=== PATIENT | female | born 1990 ===

== ENCOUNTER 2021-10-21 07:31 | Inpatient (IN) ==
[2021-10-21] MEDS ORDERED: OXYTOCIN 30 UNITS/500 ML BAG IV PRN ×3 (08:15→18:02)
[2021-10-21 09:19] LABS: Hematocrit (blood only) 39.8 % (37-47); Mean Corpuscular Hemoglobin 30.5 pg (25-34); Mean Corpuscular Hgb Conc 35.2 g/dL (32-36); Mean Corpuscular Volume 86.7 fL (80-100); Mean Platelet Volume 10.2 fL (7.4-10.4); Platelet Count 184 K/uL (130-400); RDW Coefficient of Variation 13.4 % (11.5-14.5); RDW Standard Deviation 42.1 fL (36.4-46.3); Red Blood Count 4.59 M/uL (4.2-5.4); White Blood Count 15.97 K/uL (4.8-10.8)
[2021-10-21] MEDS: LACTATED RINGER'S 1,000 ML IV PRN ×2 (09:23→13:50)
[2021-10-21 09:39] LABS: Alanine Aminotransferase 7 U/L (7-52); Albumin Level 3.5 gm/dl (3.4-5.0); Alkaline Phosphatase 167 U/L (34-104); Anion Gap 7 (3-11); Aspartate Aminotransferase 13 U/L (13-39); BUN Creatinine Ratio 14.3 (10-20); Bilirubin,Total 0.5 mg/dl (0.2-1.0); Blood Urea Nitrogen 7 mg/dl (6-23); Calcium 8.9 mg/dl (8.5-10.1); Carbon Dioxide 25 mmol/L (21-32); Chloride 103 mmol/L (98-107); Est GFR (African American) > 150.0 ml/min; Est GFR (Non-African American) 131.7 ml/min; Globulin 3.4 gm/dl (2.5-4.0); Glucose 79 mg/dl (70-99(Fasting)); Potassium 3.6 mmol/L (3.5-5.1); Sodium 135 mmol/L (136-145); Total Protein 6.9 gm/dl (6.0-8.3)
--- NOTE | 2021-10-21 09:47 | History & Physical Report ---
Date of Service October 21, 2021 Assessment & Plan (1) Encounter for induction of labor: (2) Need for rhogam due to Rh negative mother: Plan: admit, iv, labs. start pitocin, plan arom, epidural when desires. fhts categ 1. Admission and Anticipated Discharge Date Admission Date: October 21, 2021 History of Present Illness Chief Complaint: planned induction Primary Care Provider: Angela Hernandez PA-C 31yo at 40 3/7 wks fuad presents to L&D for planned induction after gonzalez ripening balloon placed last evening. She notes gonzalez balloon did not fall out. No rom, no vb. No ctx. +FM. PNC c/b rh neg, had rhogam PNL rh neg, ri, gbs neg OBH: G1 GYNH: nl paps Allergies Allergy/AdvReac Type Severity Reaction Status Date / Time No Known Allergies Allergy Verified 10/20/21 13:17 Home Medications Medication Instructions Recorded Confirmed Type fluticasone propionate 50 1 spray INTRANASAL DAILY PRN 04/19/20 10/20/21 History mcg/actuation nasal spray,suspension (Flonase Allergy Relief) docusate sodium 100 mg capsule 100 mg PO BID 02/27/21 10/20/21 History (Colace) prenat.vits,mango,[id number] 1 tab PO DAILY 02/27/21 10/20/21 History aspirin 81 mg tablet,delayed 81 mg PO DAILY 08/05/21 10/20/21 History release loratadine 10 mg tablet (Claritin) 10 mg PO DAILY 08/05/21 10/20/21 History Patient History Medical History (Updated 10/21/21 @ 09:50 by Ju Casas MD, FACOG) History of ovarian cyst History of varicella as a child Hx of migraines common type, has not happened since college. Family History (Updated 03/07/21 @ 15:50 by Candida Gilliam MD) Father Heart disease Grandfather (Maternal) Deep vein thrombosis Prostate cancer Mother Pre-eclampsia Grandmother (Maternal) Pre-eclampsia Denies family history of Ovarian cancer Breast cancer Colorectal cancer Uterine cancer Social History (Updated 02/27/21 @ 13:36 by Gloria Fox) Smoking Status: Never smoker Hx Alcohol Use: No Hx Substance Use: No Preferred Language: [place] Islander Communication Ability: Effective Overlay Plastician Required: No Beliefs That Will Affect Care: None marital status: marital status details: Dillon (29) [phone] Current Living Situation: Spouse Current Living Situation Comment: lives with spouse, no pets current occupational status: employed 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 Other Information That Helps Us Care for You: No Feels Safe at Home: Yes Safety Concerns: Feels Safe At This Time Assistive Devices: None Review of Systems as per Subjective / HPI Physical Exam Constitutional: WD/WN, vitals as above Respiratory: normal respiratory effort, lungs clear to auscultation Cardiovascular: Rate/Rhythm: regular rate and regular rhythm Gastrointestinal (Abdomen): soft gravid nt efw 7-8# Musculoskeletal: no edema nontender calves Neurologic: grossly normal Psychiatric: A+Ox3, euthymic affect Genitourinary: Manual OB Exam: + cervical dilation 4 cm, + cervical effacement (75%) and + station 0 OB Exam Monitor Tracing: + external FHT monitor used, + external uterine monitor used (no ctx), + category I and + normal FHT variability balloon in vagina, deflated and removed. Results & Data ([facility]) Vital Signs (Past 12 Hours) Vital Signs Temp Pulse Resp BP 10/21/21 09:30 98.2 F 86 20 121/80 10/21/21 07:45 94 H 144/82 H Coding Level of Care Code None Diagnoses Encounter for induction of labor Z34.90 Need for rhogam due to Rh negative mother Z29.13
--- NOTE | 2021-10-21 13:05 | Labor Progress Brief Note ---
Date of Service October 21, 2021 Subjective feeling some ctx. Assessment & Plan (1) Encounter for induction of labor: (2) Need for rhogam due to Rh negative mother: Plan: good cx change. will see how arom helps ctx pattern. fhts categ 1. Admission and Anticipated Discharge Date Admission Date: October 21, 2021 Physical Exam Constitutional: WD/WN, vitals as above Genitourinary: Manual OB Exam: + cervical dilation 5 cm, + cervical effacement 90% and + station -1 OB Exam Monitor Tracing: + external FHT monitor used, + external uterine monitor used (q2), + category I and + normal FHT variability Results & Data ([facility]) Vital Signs (Past 12 Hours) Vital Signs Temp Pulse Resp BP Pulse Ox 10/21/21 12:54 90 96 10/21/21 12:49 77 97 10/21/21 12:44 85 96 10/21/21 12:39 80 95 10/21/21 12:34 71 96 10/21/21 12:29 73 94 10/21/21 12:24 97 H 95 10/21/21 12:19 78 94 10/21/21 12:14 67 95 10/21/21 12:09 67 95 10/21/21 12:04 77 96 10/21/21 11:59 70 97 10/21/21 11:54 82 94 10/21/21 11:51 70 120/80 10/21/21 11:49 86 94 10/21/21 11:44 71 96 10/21/21 11:39 74 96 10/21/21 11:32 97 10/21/21 11:27 77 96 10/21/21 11:22 75 96 10/21/21 11:17 77 96 10/21/21 11:12 90 95 10/21/21 11:07 74 97 10/21/21 11:02 78 96 10/21/21 10:57 75 96 10/21/21 10:52 81 96 10/21/21 10:47 83 97 10/21/21 10:44 72 118/77 10/21/21 10:42 69 99 10/21/21 09:30 98.2 F 86 20 121/80 10/21/21 07:45 94 H 144/82 H Coding Level of Care Code None Diagnoses Encounter for induction of labor Z34.90 Need for rhogam due to Rh negative mother Z29.13
[2021-10-21] MEDS ORDERED: ePHEDrine sulfate 50 MG/ML AMP ONE (13:30)
[2021-10-21] MEDS ORDERED: SODIUM CHLORIDE 0.9% INJ 10 ML VIAL ONE (13:30)
[2021-10-21] MEDS ORDERED: fentaNYL 2MCG/ML ROPIVACAINE 1.25MG/ML 100 ML BAG EPI ONE (13:30)
[2021-10-21] MEDS ORDERED: BUPIVACAINE 0.25% 30 ML VIAL ONE (13:30)
[2021-10-21] MEDS ORDERED: fentaNYL citrate 100 MCG/2 ML VIAL ONE (13:30)
--- NOTE | 2021-10-21 13:54 | Anesthesiology Consultation ---
Date of Service October 21, 2021 Assessment & Plan (1) Encounter for pre-operative examination: Chart Review Chart Review: Acceptable Risk for Labor Epidural History Height/Weight Height: 5 ft 9 in Weight: 99.337 kg Allergies Allergy/AdvReac Type Severity Reaction Status Date / Time No Known Allergies Allergy Verified 10/20/21 13:17 Medications Home Medications Medication Instructions Recorded Confirmed Last Taken docusate sodium 100 mg capsule 100 mg PO BID 02/27/21 10/21/21 10/20/21 08:00 (Colace) prenat.vits,mango,ihy-kykk-lnpqi 1 tab PO DAILY 02/27/21 10/21/21 10/20/21 08:00 aspirin 81 mg tablet,delayed 81 mg PO DAILY 08/05/21 10/21/21 10/20/21 08:00 release loratadine 10 mg tablet (Claritin) 10 mg PO DAILY 08/05/21 10/21/21 10/20/21 08:00 Active Medications Generic Name Dose Route Start Last Admin Trade Name Freq PRN Reason Stop Dose Admin Oxytocin 30 units in 500 mls @ 11 mls/hr 10/21/21 08:15 10/21/21 12:24 Pitocin IV 10/23/21 08:14 0.66 units/hr .Q24H PRN 11 mls/hr Labor Induction/Augmentation Titration Protocol 0.66 UNITS/HR Lactated Ringer's 1,000 mls @ 125 mls/hr 10/21/21 08:15 10/21/21 13:50 Lr IV 10/23/21 08:14 999 mls/hr .Q8H PRN Administration L&D Protocol Protocol Past Medical History Medical History (Updated 10/21/21 @ 13:54 by Law Bennett MD) History of ovarian cyst History of varicella as a child Hx of migraines common type, has not happened since college. Past Family History Family History Father Heart disease Grandfather (Maternal) Deep vein thrombosis Prostate cancer Mother Pre-eclampsia Grandmother (Maternal) Pre-eclampsia Denies family history of Ovarian cancer Breast cancer Colorectal cancer Uterine cancer Past Surgical History Surgical History (Updated 10/21/21 @ 13:54 by Law Bennett MD) Hx of wisdom tooth extraction Social History Smoking Status: Never smoker Hx Alcohol Use: No Hx Substance Use: No substance use type: does not use Physical Exam Vital Signs Last Vital Signs Temp 36.8 C 10/21/21 09:30 Pulse 90 10/21/21 12:54 Resp 20 10/21/21 09:30 BP 120/80 10/21/21 11:51 Pulse Ox 96 10/21/21 12:54 Testing Laboratory Results 10/21/21 08:50 10/21/21 08:50
[2021-10-21] MEDS ORDERED: ePHEDrine sulfate 50 MG/ML AMP IV PRN (14:18)
[2021-10-21] MEDS ORDERED: NALOXONE HCL 0.4 MG/1 ML VIAL/CARP IV PRN (14:18)
[2021-10-21] MEDS ORDERED: NALOXONE HCL 1 MG in SODIUM CHLORIDE 0.9% 1000ML 1,000 ML IV PRN (14:18)
[2021-10-21] MEDS ORDERED: ONDANSETRON INJ 2 MG/ML 2 ML VIAL IV PRN (14:18)
[2021-10-21] MEDS ORDERED: fentaNYL 2MCG/ML ROPIVACAINE 1.25MG/ML 100 ML BAG EPI PRN (14:18)
--- NOTE | 2021-10-21 15:07 | Labor Progress Brief Note ---
Date of Service October 21, 2021 Subjective pt comfortable with epidural. Assessment & Plan (1) Encounter for induction of labor: (2) Need for rhogam due to Rh negative mother: Plan: good cx change. fhts categ 1. c/w pitocin. fse applied to better monitor fhts. ? arrhythmia, not obvious to me, explained to pt would be eval by peds after . Admission and Anticipated Discharge Date Admission Date: October 21, 2021 Physical Exam Constitutional: WD/WN, vitals as above Genitourinary: Manual OB Exam: + cervical dilation 5 cm, + cervical effacement 100% and + station -1 OB Exam Monitor Tracing: + external FHT monitor used, + scalp electrode used (applied), + external uterine monitor used (q2), + category I and + normal FHT variability Results & Data ([facility]) Vital Signs (Past 12 Hours) Vital Signs Temp Pulse Resp BP Pulse Ox 10/21/21 14:59 65 98 10/21/21 14:54 62 117/65 98 10/21/21 14:49 66 98 10/21/21 14:44 67 99 10/21/21 14:39 73 99 10/21/21 14:37 77 117/75 10/21/21 14:34 64 98 10/21/21 14:32 60 109/71 10/21/21 14:29 73 99 10/21/21 14:25 80 117/78 10/21/21 14:24 69 99 10/21/21 14:23 71 112/70 10/21/21 14:21 68 114/68 10/21/21 14:19 69 112/62 99 10/21/21 14:17 64 117/72 10/21/21 14:15 65 115/68 10/21/21 14:14 66 100 10/21/21 14:13 66 121/78 10/21/21 14:11 65 121/75 10/21/21 14:09 71 100 10/21/21 14:04 74 100 10/21/21 13:59 74 100 10/21/21 13:54 83 99 10/21/21 12:54 90 96 10/21/21 12:49 77 97 10/21/21 12:44 85 96 10/21/21 12:39 80 95 10/21/21 12:34 71 96 10/21/21 12:29 73 94 10/21/21 12:24 97 H 95 10/21/21 12:19 78 94 10/21/21 12:14 67 95 10/21/21 12:09 67 95 10/21/21 12:04 77 96 10/21/21 11:59 70 97 10/21/21 11:54 82 94 10/21/21 11:51 70 120/80 10/21/21 11:49 86 94 10/21/21 11:44 71 96 10/21/21 11:39 74 96 10/21/21 11:32 97 10/21/21 11:27 77 96 10/21/21 11:22 75 96 10/21/21 11:17 77 96 10/21/21 11:12 90 95 10/21/21 11:07 74 97 10/21/21 11:02 78 96 10/21/21 10:57 75 96 10/21/21 10:52 81 96 10/21/21 10:47 83 97 10/21/21 10:44 72 118/77 10/21/21 10:42 69 99 10/21/21 09:30 98.2 F 86 20 121/80 10/21/21 07:45 94 H 144/82 H Coding Level of Care Code None Diagnoses Encounter for induction of labor Z34.90 Need for rhogam due to Rh negative mother Z29.13
--- NOTE | 2021-10-21 17:06 | Labor Progress Brief Note ---
Date of Service October 21, 2021 Subjective comfortable with epidural, occas right sided pain. Assessment & Plan (1) Encounter for induction of labor: (2) Need for rhogam due to Rh negative mother: Plan: ready for 2nd stage. FHTs categ 1. c/w pit. Admission and Anticipated Discharge Date Admission Date: October 21, 2021 Physical Exam Constitutional: WD/WN, vitals as above Genitourinary: Manual OB Exam: + cervical dilation 10 cm, + cervical effacement 100% and + station + 2 OB Exam Monitor Tracing: + scalp electrode used, + external uterine monitor used (q3), + category I and + normal FHT variability Results & Data ([facility]) Vital Signs (Past 12 Hours) Vital Signs Temp Pulse Resp BP Pulse Ox 10/21/21 16:59 82 100 10/21/21 16:54 66 100 10/21/21 16:53 67 125/71 10/21/21 16:49 65 99 10/21/21 16:44 84 99 10/21/21 16:39 72 99 10/21/21 16:38 71 127/76 10/21/21 16:34 85 98 10/21/21 16:29 71 100 10/21/21 16:24 69 99 10/21/21 16:23 76 127/81 10/21/21 16:19 66 98 10/21/21 16:14 77 99 10/21/21 16:09 67 100 10/21/21 16:08 67 119/74 10/21/21 16:04 64 99 10/21/21 15:59 83 99 10/21/21 15:54 67 100 10/21/21 15:53 70 118/71 10/21/21 15:49 63 99 10/21/21 15:44 75 99 10/21/21 15:39 70 116/68 98 10/21/21 15:34 69 98 10/21/21 15:29 65 98 10/21/21 15:24 66 98 10/21/21 15:22 68 111/59 L 10/21/21 15:19 68 99 10/21/21 15:14 65 98 10/21/21 15:09 65 98 10/21/21 15:08 57 L 114/61 10/21/21 15:04 67 99 10/21/21 14:59 65 98 05 14:56 98.2 F 20 10/21/21 14:54 62 117/65 98 05 14:49 66 98 05 14:44 67 99 10/21/21 14:39 73 99 05 14:37 77 117/75 05 14:34 64 98 05 14:32 60 109/71 05 14:29 73 99 05 14:25 80 117/78 05 14:24 69 99 05 14:23 71 112/70 05 14:21 68 114/68 05 14:19 69 112/62 99 05 14:17 64 117/72 10/21/21 14:15 65 115/68 10/21/21 14:14 66 100 10/21/21 14:13 66 121/78 05 14:11 65 121/75 05 14:09 71 100 05 14:04 74 100 05 13:59 74 100 05 13:54 83 99 05 13:01 97.9 F 20 10/21/21 12:54 90 96 05 12:49 77 97 10/21/21 12:44 85 96 05 12:39 80 95 10/21/21 12:34 71 96 05 12:29 73 94 05 12:24 97 H 95 05 12:19 78 94 05 12:14 67 95 05 12:09 67 95 05 12:04 77 96 05 11:59 70 97 05 11:54 82 94 05 11:51 70 120/80 05 11:49 86 94 05 11:44 71 96 05 11:39 74 96 05 11:32 97 05 11:27 77 96 05 11:22 75 96 05 11:17 77 96 05 11:12 90 95 05/24/22 11:07 74 97 05/22 11:02 78 96 10/21/21 10:57 75 96 10/21/21 10:52 81 96 10/21/21 10:47 83 97 10/21/21 10:44 72 118/77 10/21/21 10:42 69 99 10/21/21 09:30 98.2 F 86 20 121/80 10/21/21 07:45 94 H 144/82 H Coding Level of Care Code None Diagnoses Encounter for induction of labor Z34.90 Need for rhogam due to Rh negative mother Z29.13
--- NOTE | 2021-10-21 18:01 | Delivery Summary ---
Vaginal Delivery Summary Date of Service October 21, 2021 Vaginal Delivery Summary and 2nd Degree LAC The patient dilated to complete and pushed to deliver a viable male infant Apgars 8 and 9 via over 2nd degree perineal laceration. Mouth and nose bulb suctioned at perineum. Loose nuchal x 2 reduced. Shoulders and body delivered with ease. Infant was vigorous and crying at . Cord clamped at 30 seconds of life and to maternal abdomen where the cord was then doubly clamped and cut. Placenta delivered spontaneously and intact, three-vessel cord. Hemostasis achieved with dilute pitocin and uterine massage. Cervix and sulci intact. Laceration repaired in routine fashion with 3-0 vicryl. EBL 400 cc. Mother and baby stable recovery. [facility] Vaginal Delivery Charge Delivery Type Details: and 2nd Degree LAC
[2021-10-21] MEDS ORDERED: bisacodyL 10 MG SUPP PR PRN (18:02)
[2021-10-21] MEDS ORDERED: HYDROCORTISONE ACETATE 25 MG SUPP PR PRN (18:02)
[2021-10-21] MEDS ORDERED: ACETAMINOPHEN 325 MG TAB PO PRN (18:02)
[2021-10-21] MEDS ORDERED: DIPHTHERIA/TETANUS/PERTUSSIS 0.5 ML SYR/VIAL IM ONE (18:02)
[2021-10-21] MEDS ORDERED: BENZOCAINE 20% AER SPR 82.5 GM CAN EXT PRN (18:02)
[2021-10-21] MEDS ORDERED: OXYTOCIN 20 UNITS in LACTATED RINGER'S 1,000 ML IV SCH (18:02)
[2021-10-21] MEDS ORDERED: oxyCODONE/ACETAMINOPHEN 5mg/325mg TAB PO PRN (18:02)
--- NOTE | 2021-10-21 18:28 | Anesthesia Procedure Note ---
Date of Service October 21, 2021 Anesthesia Post Epidural Note Vital Signs Vital Signs: Temp Pulse Resp BP Pulse Ox 36.8 C 93 H 20 119/50 L 88 L 10/21/21 14:56 10/21/21 18:13 10/21/21 14:56 10/21/21 18:13 10/21/21 17:44 Notes Mental Status: alert / awake / arousable and participated in evaluation Nausea / Vomiting: adequately controlled Pain: adequately controlled Airway Patency, RR, SpO2: stable & adequate BP & HR: stable & adequate Hydration State: stable & adequate Neuraxial Anesthesia: was administered and sensory block is resolving Anesthetic Complications: no major complications apparent Epidural: Removed without complications and With tip intact
[2021-10-21] MEDS: DOCUSATE SODIUM 100 MG CAP PO SCH (20:17)
[2021-10-21] MEDS: IBUPROFEN 600 MG TAB PO PRN (22:35)
[2021-10-22] MEDS: IBUPROFEN 600 MG TAB PO PRN ×5 (03:38→20:47)
--- NOTE | 2021-10-22 06:08 | Obstetrical Progress Note ---
Date of Service <Dorcas Medina MD - Last Filed: 10/22/21 07:07> October 22, 2021 Assessment & Plan <Dorcas Medina MD - Last Filed: 10/22/21 07:07> (1) Vaginal delivery: 31 yo now PPD1 from [facility] at 40wk3d -Continue routine care -Vitals reviewed- HDS, afebrile -Blood type B-, GBS-, Rubella immune. Will need Rhogam prior to discharge. -Encourage ambulation -Encourage -Pain control with ibuprofen, acetaminophen PRN -F/u in 6 weeks with OB <Ju Casas MD, FACOG - Last Filed: 10/22/21 07:11> (1) Vaginal delivery: Subjective <Dorcas Medina MD - Last Filed: 10/22/21 07:07> Ambulation: ambulating normally Voiding: no voiding problems Passing Gas:: Yes Diet Tolerance:: regular diet Lochia:: Small Feeding Type:: breast feeding Current Pain Level(1-10): 3 Pt doing well overall, no acute complaints or distress. Pain well controlled with medication. Review of Systems Denies fever/chills. Denies dyspnea, cough. Denies chest pain. Denies breast pain or discharge. Denies dysuria. Denies headache. Denies back pain. Physical Exam <Dorcas Medina MD - Last Filed: 10/22/21 07:07> General: Alert, oriented, no acute distress Cardiac: Regular rate and rhythm, normal S1, S2. No murmurs appreciated. Respiratory: Clear to auscultation b/l with good air flow entry, symmetric chest rise and fall. No wheezes or crackles. No increased work of breathing or accessory muscle use Abdomen: Soft, nontender, nondistended. Fundus firm and palpable at 1 cm below umbilicus. No guarding or rebound. Skin: No rashes or lesions Extremities: Warm, dry, well-perfused with capillary refill <2s b/l. No lower extremity edema, erythema, swelling or calf tenderness b/l. Results & Data ([facility]) <Dorcas Medina MD - Last Filed: 10/22/21 07:07> Vital Signs (Past 12 Hours) Vital Signs Temp Pulse Pulse Resp BP BP Pulse Ox 10/22/21 03:42 36.6 C 84 18 114/74 98 10/21/21 20:25 36.7 C 92 H 18 118/76 100 10/21/21 20:12 98 H 114/75 10/21/21 20:00 18 10/21/21 19:57 100 H 113/77 10/21/21 19:42 91 H 109/67 10/21/21 19:30 36.8 C 18 10/21/21 19:27 96 H 115/66 10/21/21 19:12 95 H 116/64 10/21/21 18:57 100 H 121/69 10/21/21 18:42 94 H 123/68 10/21/21 18:27 88 120/64 10/21/21 18:13 93 H 119/50 L <Ju Casas MD, FACOG - Last Filed: 10/22/21 07:11> Co-Signing Physician Notes Resident Physician Supervision Note: I was present with Dr. Medina during the history and exam. I discussed the case with the resident and agree with the findings and plan as documented in the note. Any exceptions or clarifications are listed here: doing well routine care ff 1 down, nt, nt calves. rh neg and baby +, will need rhogam. Documented By: Ju Casas MD, FACOG Resident Activity Tracking <Dorcas Medina MD - Last Filed: 10/22/21 07:07> Resident Involvement: Resident Care Provided Care Provided: OB Delivery
[2021-10-22] MEDS: DOCUSATE SODIUM 100 MG CAP PO SCH ×2 (09:11→20:48)
[2021-10-22] MEDS: PRENATAL VITAMIN 1 TAB PO SCH (09:11)
[2021-10-22] MEDS: LORATADINE 10 MG TAB PO SCH (09:12)
[2021-10-23] MEDS: IBUPROFEN 600 MG TAB PO PRN ×2 (05:18→10:38)
--- NOTE | 2021-10-23 05:33 | Obstetrical Progress Note ---
Date of Service <Dorcas Medina MD - Last Filed: 10/23/21 07:24> October 23, 2021 Assessment & Plan <Dorcas Medina MD - Last Filed: 10/23/21 07:24> (1) Vaginal delivery: 31 yo now PPD2 from at 40wk3d -Discharge to home today, instructions reviewed with patient -Vitals reviewed- HDS, afebrile -Rh negative, received Rhogam -F/u in 6 weeks with OB <Venessa Garcia MD, FACOG - Last Filed: 10/23/21 07:32> (1) Vaginal delivery: Subjective <Dorcas Medina MD - Last Filed: 10/23/21 07:24> Ambulation: ambulating normally Voiding: no voiding problems Passing Gas:: Yes Diet Tolerance:: regular diet Lochia:: Small Feeding Type:: breast feeding Current Pain Level(1-10): 0 Pt doing well overall, no acute complaints or distress. Mild nipple soreness with , pain well controlled with medication. Review of Systems Denies fever/chills. Denies dyspnea, cough. Denies chest pain. Denies breast pain or discharge. Denies dysuria. Denies headache. Denies back pain. Physical Exam <Dorcas Medina MD - Last Filed: 10/23/21 07:24> General: Alert, oriented, no acute distress Cardiac: Regular rate and rhythm, normal S1, S2. No murmurs appreciated. Respiratory: Clear to auscultation b/l with good air flow entry, symmetric chest rise and fall. No wheezes or crackles. No increased work of breathing or accessory muscle use Abdomen: Soft, nontender, nondistended. Fundus firm and palpable at 2 cm below umbilicus. No guarding or rebound. Skin: No rashes or lesions Extremities: Warm, dry, well-perfused with capillary refill <2s b/l. No lower extremity edema, erythema, swelling or calf tenderness b/l. Results & Data ([facility]) <Dorcas Medina MD - Last Filed: 10/23/21 07:24> Vital Signs (Past 12 Hours) Vital Signs Temp Pulse Resp BP Pulse Ox 10/23/21 04:20 36.7 C 72 18 127/78 98 10/22/21 20:00 36.7 C 86 18 <Venessa Garcia MD, FACOG - Last Filed: 10/23/21 07:32> Co-Signing Physician Notes Resident Physician Supervision Note: I interviewed and examined the patient. Discussed with Dr. Medina and agree with findings and plan as documented in the note. Any exceptions or clarifications are listed here: [None] Documented By: Venessa Garcia MD, FACOG Resident Activity Tracking <Dorcas Medina MD - Last Filed: 10/23/21 07:24> Resident Involvement: Resident Care Provided Care Provided: OB Delivery
[2021-10-23] MEDS: DOCUSATE SODIUM 100 MG CAP PO SCH (07:57)
[2021-10-23] MEDS: PRENATAL VITAMIN 1 TAB PO SCH (07:57)
[2021-10-23] MEDS: LORATADINE 10 MG TAB PO SCH (07:58)
== END 2021-10-23 13:07 | disposition home or self-care (01) | DRG 807 ==
LOC: 4S1 07:31 → 4E2 20:30

== ENCOUNTER 2024-10-16 17:32 | Inpatient (IN) ==
[2024-10-16] MEDS ORDERED: CALCIUM CARBONATE 500 MG CHEWABLE TAB PO PRN (18:11)
[2024-10-16] MEDS ORDERED: OXYTOCIN 30 UNITS/NSS 30 UNITS/500 ML BAG IV PRN (18:11)
[2024-10-16] MEDS ORDERED: ACETAMINOPHEN 325 MG TAB PO PRN (18:11)
[2024-10-16] MEDS ORDERED: LIDOCAINE 1% LOCAL 20 ML VIAL INFIL PRN (18:11)
[2024-10-16 18:41] LABS: Hematocrit (blood only) 40.2 % (37.0-47.0); Hemoglobin 14.2 g/dl (12.0-16.0); Mean Corpuscular Hemoglobin 30.1 pg (25.0-34.0); Mean Corpuscular Hgb Conc 35.3 g/dL (32.0-36.0); Mean Corpuscular Volume 85.4 fL (80.0-100.0); Mean Platelet Volume 10.1 fL (9.4-12.4); Platelet Count 160 K/uL (130-400); RDW Coefficient of Variation 13.6 % (11.5-14.5); RDW Standard Deviation 41.9 fL (36.4-46.3); Red Blood Count 4.71 M/uL (4.20-5.40); White Blood Count 9.52 K/ul (4.8-10.8)
[2024-10-16] MEDS: OXYTOCIN 30 UNITS/NSS 30 UNITS/500 ML BAG IV PRN (19:22)
[2024-10-16] MEDS: LACTATED RINGER'S 1,000 ML IV PRN (19:22)
--- NOTE | 2024-10-16 19:35 | History & Physical Report ---
Date of Service October 16, 2024 Assessment & Plan (1) Post term over 40 weeks: Plan: IUP at 40 3/7 weeks for IOL will start pitocin induction per L&D protocol epidural when requested anticipate vaginal Admission and Anticipated Discharge Date Admission Date: October 16, 2024 History of Present Illness Primary Care Provider: Angela Hernandez PA-C Patient is a 34 yo female EDC 10/13/24 who presents at 40 3/7 weeks for induction because of post term . course otherwise has been uneventful. GBS-neg/ B-neg Allergies Allergy/AdvReac Type Severity Reaction Status Date / Time amoxicillin Allergy Mild Rash Verified 10/13/24 14:52 Home Medications Medication Instructions Recorded Confirmed Type prenat.vits,mango,gpq-flfb-rxnav 1 tab PO DAILY 02/27/21 10/13/24 History fluticasone propionate [Flonase intranasal 03/11/22 10/13/24 History Allergy Relief] cetirizine [Zyrtec] PO 01/07/23 10/13/24 History docusate sodium [Colace] PO PRN 10/06/24 10/13/24 History Patient History Medical History (Updated 10/16/24 @ 19:37 by Venessa Garcia MD, FACOG) Ovarian cyst, right Vaginal delivery History of varicella as a child History of ovarian cyst Hx of migraines common type, has not happened since college. Surgical History S/P wisdom tooth extraction Family History Father Heart disease Grandfather (Maternal) Deep vein thrombosis Prostate cancer Mother Pre-eclampsia Grandmother (Maternal) Pre-eclampsia Uncle Colorectal cancer Denies family history of Ovarian cancer Breast cancer Uterine cancer Social History (Updated 10/16/24 @ 18:29 by Saumya Lee RN) Smoking Status: Never smoker Do You Dip or Chew Tobacco: No; Hx Alcohol Use: No Hx Substance Use: No Preferred Language: Kinyarwanda Communication Ability: Effective Merchandise Clerk Required: No Beliefs That Will Affect Care: None marital status: marital status details: Arthur (32) [phone] Current Living Situation: Spouse and Family Current Living Situation Comment: lives with spouse, child, no pets current occupational status: employed 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 [employer] Feels Safe at Home: Yes Safety Concerns: Feels Safe At This Time Assistive Devices: None Review of Systems All systems reviewed & are unremarkable except as noted in HPI & below Physical Exam Constitutional: WD/WN, vitals as above Psychiatric: A+Ox3, euthymic affect Genitourinary: OB Exam Abdomen: + vertex and + estimated weight (7-8 pounds) Manual OB Exam: + cervical dilation 3 cm, + cervical effacement 80% and + station -1 (posterior) OB Exam Monitor Tracing: + external FHT monitor used, + external uterine monitor used, + category I and + normal FHT variability Results & Data Vital Signs (Past 12 Hours) Vital Signs Temp Pulse Resp BP 10/16/24 19:04 88 10/16/24 19:04 122/78 10/16/24 18:34 97.9 F 105 H 22 136/86 10/16/24 18:15 105 H 136/86 Coding Level of Care Code 10486 INT INP/OBS CARE 140MIN Diagnoses Post term over 40 weeks O48.0
[2024-10-16] MEDS ORDERED: NALOXONE HCL 0.4 MG/1 ML VIAL/CARP IV PRN (21:58)
[2024-10-16] MEDS ORDERED: fentANYL 2 MCG/ML BUPIVacaine 0.125%-NSS 100ML BAG EPI PRN (21:58)
[2024-10-16] MEDS ORDERED: ROPIVACAINE 0.5% PF 5 MG/ML 20 ML VIAL EPI PRN (21:58)
[2024-10-16] MEDS ORDERED: BUPIVACAINE 0.25% PF 30 ML VIAL EPI PRN (21:58)
[2024-10-16] MEDS ORDERED: NALOXONE HCL 1 MG in SODIUM CHLORIDE 0.9% 1,000 ML IV PRN (21:58)
[2024-10-16] MEDS ORDERED: NALBUPHINE HCL INJ 10 MG/ML AMP IV PRN (21:58)
[2024-10-16] MEDS ORDERED: fentaNYL citrate PF 100 MCG/2 ML VIAL EPI PRN (21:58)
[2024-10-16] MEDS ORDERED: ePHEDrine sulfate 50 MG/ML AMP IV PRN (21:58)
[2024-10-16] MEDS ORDERED: diphenhydrAMINE 50 MG/ML VIAL IV PRN (21:58)
[2024-10-16] MEDS ORDERED: SODIUM CHLORIDE 0.9% PF INJ 10 ML VIAL EPI PRN (21:58)
--- NOTE | 2024-10-16 22:01 | Anesthesiology Consultation ---
Date of Service October 16, 2024 Assessment & Plan Chart Review Chart Review: Patient NOT seen in Pre Admission Testing and Acceptable Risk for Labor Epidural Consults Requested none ASA ASA2 Proposed Anesthesia Anesthesia Type: Labor Epidural Risk / Benefits Reviewed With: PT / POA / Parent / Guardian, Accepts Plan and Informed Consent Obtained History Height/Weight Height: 5 ft 9 in Weight: 107.594 kg Allergies Allergy/AdvReac Type Severity Reaction Status Date / Time amoxicillin Allergy Mild Rash Verified 10/13/24 14:52 Medications Home Medications Medication Instructions Recorded Confirmed Last Taken prenat.vits,mango,wvy-dymk-tjyfv 1 tab PO DAILY 02/27/21 10/16/24 10/20/21 08:00 Zyrtec 1 cap PO 10/16/24 Unknown fluticasone propionate 50 See Rx Instructions .Route .COMPLEX 10/16/24 10/16/24 Unknown mcg/actuation nasal spray,suspension Active Medications Generic Name Dose Route Start Last Admin Trade Name Freq PRN Reason Stop Dose Admin Lactated Ringer's 1,000 mls @ 125 mls/hr 10/16/24 18:11 10/16/24 21:50 Lr IV 10/18/24 18:10 999 mls/hr .Q8H PRN Titration L&D Protocol Protocol Oxytocin 30 units in 500 mls @ 10 mls/hr 10/16/24 18:13 10/16/24 21:45 Pitocin 30 Units/Nss IV 10/18/24 18:12 0.6 units/hr .Q24H PRN 10 mls/hr Labor Induction/Augmentation Titration Protocol 0.6 UNITS/HR NPO Date Last Intake of Fluids: 10/16/24 Time Last Intake of Fluids: 21:30 Date Last Intake of Solids: 10/16/24 Time Last Intake of Solids: 16:30 Past Medical History Medical History Ovarian cyst, right Vaginal delivery History of varicella as a child History of ovarian cyst Hx of migraines common type, has not happened since college. Exercise / Class Metabolic Activity 1 > 8 Run/Swim/Ski/Tennis Past Family History Family History Father Heart disease Grandfather (Maternal) Deep vein thrombosis Prostate cancer Mother Pre-eclampsia Grandmother (Maternal) Pre-eclampsia Uncle Colorectal cancer Maternal uncle diagnosed at age 58. Denies family history of Ovarian cancer Breast cancer Uterine cancer Past Surgical History Surgical History S/P wisdom tooth extraction Past Anesthesia History No Hx of Anesthesia Complications and No Family Hx of Anesthesia Complications History of PONV No Hx of PONV and No Hx of Motion Sickness Social History Smoking Status: Never smoker Do You Dip or Chew Tobacco: No Hx Alcohol Use: No Hx Substance Use: No substance use type: does not use Review of Systems ROS Unobtainable: All systems reviewed & are unremarkable except as noted in HPI & below Physical Exam Vital Signs Last Vital Signs Temp 36.6 C 10/16/24 18:34 Pulse 93 H 10/16/24 21:28 Resp 22 10/16/24 18:34 BP 125/80 10/16/24 21:28 ENMT Mouth: no TMJ abnormality Thyromental Distance: > or= 3.5 Finger Breadths Mallampati Class: II Neck normal visual inspection and trachea midline; neck extension not limited Respiratory normal respiratory effort Auscultation: lungs clear to auscultation bilaterally Cardiovascular Rate/Rhythm: regular rate and regular rhythm Heart Sounds: no murmur Musculoskeletal Spine: normal cervical ROM Extremities: full ROM of extremities Neurologic moves all extremities Psychiatric Orientation: alert and oriented x 3 Testing Laboratory Results 10/16/24 18:25
[2024-10-16] MEDS: LIDOCAINE 2% MPF LOCAL 5 ML VIAL EPI PRN (22:26)
[2024-10-16] MEDS: ePHEDrine sulfate 50 MG/ML AMP ONE (22:27)
[2024-10-16] MEDS: fentaNYL citrate PF 100 MCG/2 ML VIAL ONE (22:27)
[2024-10-16] MEDS: SODIUM CHLORIDE 0.9% PF INJ 10 ML VIAL EPI STA (22:27)
[2024-10-16] MEDS: BUPIVACAINE 0.25% PF 30 ML VIAL ONE (22:27)
[2024-10-16] MEDS: fentaNYL citrate PF 100 MCG/2 ML VIAL EPI STA (22:27)
[2024-10-16] MEDS: fentANYL 2 MCG/ML BUPIVacaine 0.125%-NSS 100ML BAG ONE (22:27)
[2024-10-16] MEDS: BUPIVACAINE 0.25% PF 30 ML VIAL EPI STA (22:28)
[2024-10-16] MEDS: SODIUM CHLORIDE 0.9% PF INJ 10 ML VIAL ONE (22:28)
[2024-10-16] MEDS: LIDOCAINE 2%/EPINEPHRINE 1:200,000 20 ML PF ONE (22:28)
[2024-10-16] MEDS: LIDOCAINE 2%/EPINEPHRINE 1:200,000 20 ML PF EPI STA (22:29)
[2024-10-17] MEDS ORDERED: OXYTOCIN 30 UNITS/NSS 30 UNITS/500 ML BAG IV PRN (03:09)
[2024-10-17] MEDS ORDERED: oxyCODONE/ACETAMINOPHEN 5mg/325mg TAB PO PRN (03:09)
[2024-10-17] MEDS ORDERED: BENZOCAINE 20% SPRY 85 APPLN/85 GM CAN EXT PRN (03:09)
[2024-10-17] MEDS ORDERED: HYDROCORTISONE ACETATE 25 MG SUPP PR PRN (03:09)
[2024-10-17] MEDS ORDERED: ACETAMINOPHEN 325 MG TAB PO PRN (03:09)
--- NOTE | 2024-10-17 03:38 | Delivery Summary ---
Vaginal Delivery Summary Date of Service October 17, 2024 Vaginal Delivery Summary [facility] Patient is a 34-year-old 2 para 1-0-0-1 female who had presented for induction of labor because of postterm . Pitocin by induction protocol was begun. She received effective epidural analgesia. Membranes were ruptured for clear fluid. She progressed to full dilation with the urge to push. She pushed effectively over intact perineum for delivery of a viable female infant. After the head was delivered the right hand presented followed by the arm. Rest of the delivered easily. The infant was placed on the mother's abdomen for further tension and drying. She was vigorous crying and moving all 4 limbs. Cord was clamped and cut after approximately 1 minute. After cord blood was obtained, the placenta was expressed intact with a three-vessel cord. bleeding was controlled dilute Pitocin and fundal massage. Mother and were doing well after delivery. QBL was 101 mL [facility] Vaginal Delivery Charge Delivery Type Details: [facility]
[2024-10-17] MEDS: DIPHTHER/TETAN/PERTUS Vaccine (Tdap, Adol/Adult) 0.5mL IM ONE (04:10)
--- NOTE | 2024-10-17 05:05 | Anesthesia Procedure Note ---
Date of Service October 17, 2024 Anesthesia Post Epidural Note Vital Signs Vital Signs: Temp Pulse Resp BP Pulse Ox 36.8 C 93 H 18 118/56 L 99 10/17/24 01:01 10/17/24 04:33 10/17/24 04:35 10/17/24 04:33 10/17/24 02:25 Notes Mental Status: alert / awake / arousable and participated in evaluation Nausea / Vomiting: adequately controlled Pain: adequately controlled Airway Patency, RR, SpO2: stable & adequate BP & HR: stable & adequate Hydration State: stable & adequate Neuraxial Anesthesia: was administered and sensory block is resolving Anesthetic Complications: no major complications apparent Epidural: Removed without complications and With tip intact
[2024-10-17] MEDS: PRENATAL VITAMIN 1 TAB PO SCH (08:22)
[2024-10-17] MEDS: DOCUSATE SODIUM 100 MG CAP PO SCH (08:22)
[2024-10-17] MEDS: IBUPROFEN 600 MG TAB PO PRN (08:22)
--- NOTE | 2024-10-17 08:25 | Obstetrical Progress Note ---
Date of Service October 17, 2024 Assessment & Plan (1) Encounter for care and examination after delivery: satisfactory course continue current care plan Subjective Ambulation: ambulating normally Voiding: no voiding problems Passing Gas:: Yes Diet Tolerance:: regular diet Lochia:: Moderate Feeding Type:: breast feeding doing well this morning minimal cramping with Physical Exam Constitutional WD/WN, vitals as above Psychiatric A+Ox3, euthymic affect Genitourinary OB Exam Abdomen: + fundal height Fundus: + firm and + relation to umbilicus (at U) Results & Data Vital Signs (Past 12 Hours) Vital Signs Temp Pulse Pulse Resp BP BP Pulse Ox 10/17/24 07:39 98.2 F 86 18 115/74 97 10/17/24 05:10 97.7 F 88 18 129/88 97 10/17/24 04:35 18 10/17/24 04:33 93 H 118/56 L 10/17/24 04:18 96 H 115/63 10/17/24 04:03 92 H 121/65 10/17/24 03:48 86 122/68 10/17/24 03:33 78 132/68 10/17/24 03:20 18 10/17/24 03:18 88 129/66 10/17/24 03:09 82 137/69 10/17/24 03:05 18 10/17/24 02:52 87 136/70 10/17/24 02:50 18 10/17/24 02:35 18 10/17/24 02:35 94 H 139/74 10/17/24 02:33 164 H 156/105 H 10/17/24 02:25 100 H 99 10/17/24 02:20 101 H 97 10/17/24 02:15 131 H 99 10/17/24 02:12 106 H 92 10/17/24 02:10 92 H 98 10/17/24 02:07 115 H 92 10/17/24 02:05 110 H 99 10/17/24 02:04 90 139/84 10/17/24 02:00 96 H 98 10/17/24 01:55 96 H 97 10/17/24 01:50 101 H 99 10/17/24 01:45 105 H 98 10/17/24 01:40 105 H 98 10/17/24 01:35 103 H 98 10/17/24 01:33 93 H 131/78 10/17/24 01:30 100 H 99 10/17/24 01:25 100 H 99 10/17/24 01:20 96 H 99 10/17/24 01:15 89 100 10/17/24 01:10 92 H 100 10/17/24 01:05 77 97 10/17/24 01:04 78 106/59 L 10/17/24 01:01 18 10/17/24 01:01 98.2 F 18 10/17/24 01:00 88 98 10/17/24 00:55 76 98 10/17/24 00:50 75 97 10/17/24 00:45 78 98 10/17/24 00:40 71 98 10/17/24 00:35 81 98 10/17/24 00:34 78 97/56 L 10/17/24 00:30 80 97 10/17/24 00:25 80 97 10/17/24 00:20 95 H 98 10/17/24 00:15 76 97 10/17/24 00:10 83 98 10/17/24 00:05 85 96 10/17/24 00:04 78 111/70 10/17/24 00:00 81 97 10/16/24 23:55 99 10/16/24 23:55 78 10/16/24 23:50 96 10/16/24 23:50 92 H 10/16/24 23:45 100 10/16/24 23:45 80 10/16/24 23:40 97 10/16/24 23:40 76 10/16/24 23:35 97 10/16/24 23:35 67 10/16/24 23:34 67 10/16/24 23:34 102/59 L 10/16/24 23:30 95 10/16/24 23:30 67 10/16/24 23:29 94 10/16/24 23:29 75 10/16/24 23:25 95 10/16/24 23:25 81 10/16/24 23:20 95 10/16/24 23:20 71 10/16/24 23:20 94 10/16/24 23:20 85 10/16/24 23:15 95 10/16/24 23:15 78 10/16/24 23:10 96 10/16/24 23:10 85 10/16/24 23:05 18 10/16/24 23:05 97.5 F L 18 10/16/24 23:05 97 10/16/24 23:05 85 10/16/24 23:04 71 10/16/24 23:04 101/63 10/16/24 23:03 94 10/16/24 23:03 74 10/16/24 23:00 95 10/16/24 23:00 87 10/16/24 22:55 96 10/16/24 22:55 75 10/16/24 22:54 94 10/16/24 22:54 75 10/16/24 22:50 96 10/16/24 22:50 82 10/16/24 22:45 97 10/16/24 22:45 84 10/16/24 22:40 97 10/16/24 22:40 92 H 10/16/24 22:35 97 10/16/24 22:35 94 H 10/16/24 22:33 94 10/16/24 22:33 93 H 10/16/24 22:33 107/69 10/16/24 22:30 94 10/16/24 22:30 89 10/16/24 22:30 124/72 10/16/24 22:29 89 10/16/24 22:29 124/73 10/16/24 22:27 95 H 10/16/24 22:27 122/75 10/16/24 22:26 93 10/16/24 22:26 98 H 10/16/24 22:25 97 10/16/24 22:25 98 H 10/16/24 22:24 93 H 10/16/24 22:24 126/76 10/16/24 22:22 96 H 10/16/24 22:22 123/76 10/16/24 22:21 94 H 10/16/24 22:21 124/80 10/16/24 22:20 96 10/16/24 22:20 96 H 10/16/24 22:19 105 H 10/16/24 22:19 130/89 10/16/24 22:16 92 H 10/16/24 22:16 139/91 10/16/24 22:15 97 10/16/24 22:15 89 10/16/24 22:10 98 05/19/25 22:10 86 10/16/24 22:05 98 10/16/24 22:05 89 10/16/24 22:00 99 10/16/24 22:00 82 10/16/24 21:28 93 H 10/16/24 21:28 125/80 10/16/24 20:27 91 H 10/16/24 20:27 130/80 O2 Del Method 10/17/24 07:39 Room Air 10/17/24 05:10 Room Air 10/17/24 04:35 10/17/24 04:33 10/17/24 04:18 10/17/24 04:03 10/17/24 03:48 10/17/24 03:33 10/17/24 03:20 10/17/24 03:18 10/17/24 03:09 10/17/24 03:05 10/17/24 02:52 10/17/24 02:50 10/17/24 02:35 10/17/24 02:35 10/17/24 02:33 10/17/24 02:25 10/17/24 02:20 10/17/24 02:15 10/17/24 02:12 10/17/24 02:10 10/17/24 02:07 10/17/24 02:05 10/17/24 02:04 10/17/24 02:00 10/17/24 01:55 10/17/24 01:50 10/17/24 01:45 10/17/24 01:40 10/17/24 01:35 10/17/24 01:33 10/17/24 01:30 10/17/24 01:25 10/17/24 01:20 10/17/24 01:15 10/17/24 01:10 10/17/24 01:05 10/17/24 01:04 10/17/24 01:01 10/17/24 01:01 10/17/24 01:00 10/17/24 00:55 10/17/24 00:50 10/17/24 00:45 10/17/24 00:40 10/17/24 00:35 10/17/24 00:34 10/17/24 00:30 10/17/24 00:25 10/17/24 00:20 10/17/24 00:15 10/17/24 00:10 10/17/24 00:05 10/17/24 00:04 10/17/24 00:00 10/16/24 23:55 10/16/24 23:55 10/16/24 23:50 10/16/24 23:50 10/16/24 23:45 10/16/24 23:45 10/16/24 23:40 10/16/24 23:40 10/16/24 23:35 10/16/24 23:35 10/16/24 23:34 10/16/24 23:34 10/16/24 23:30 10/16/24 23:30 10/16/24 23:29 10/16/24 23:29 10/16/24 23:25 10/16/24 23:25 10/16/24 23:20 10/16/24 23:20 10/16/24 23:20 10/16/24 23:20 10/16/24 23:15 10/16/24 23:15 10/16/24 23:10 10/16/24 23:10 10/16/24 23:05 10/16/24 23:05 10/16/24 23:05 10/16/24 23:05 10/16/24 23:04 10/16/24 23:04 10/16/24 23:03 10/16/24 23:03 10/16/24 23:00 10/16/24 23:00 10/16/24 22:55 10/16/24 22:55 10/16/24 22:54 10/16/24 22:54 10/16/24 22:50 10/16/24 22:50 10/16/24 22:45 10/16/24 22:45 10/16/24 22:40 10/16/24 22:40 10/16/24 22:35 10/16/24 22:35 10/16/24 22:33 10/16/24 22:33 10/16/24 22:33 10/16/24 22:30 10/16/24 22:30 10/16/24 22:30 10/16/24 22:29 10/16/24 22:29 10/16/24 22:27 10/16/24 22:27 10/16/24 22:26 10/16/24 22:26 10/16/24 22:25 10/16/24 22:25 10/16/24 22:24 10/16/24 22:24 10/16/24 22:22 10/16/24 22:22 10/16/24 22:21 10/16/24 22:21 10/16/24 22:20 10/16/24 22:20 10/16/24 22:19 10/16/24 22:19 10/16/24 22:16 10/16/24 22:16 10/16/24 22:15 10/16/24 22:15 10/16/24 22:10 10/16/24 22:10 10/16/24 22:05 10/16/24 22:05 10/16/24 22:00 10/16/24 22:00 10/16/24 21:28 10/16/24 21:28 10/16/24 20:27 10/16/24 20:27
[2024-10-17 16:01] VITALS: RESP 18
[2024-10-18 00:27] VITALS: PULSE 89
[2024-10-18 06:49] LABS: Hematocrit (blood only) 35.6 % (37.0-47.0); Hemoglobin 12.5 g/dl (12.0-16.0); Mean Corpuscular Hemoglobin 30.9 pg (25.0-34.0); Mean Corpuscular Hgb Conc 35.1 g/dL (32.0-36.0); Mean Corpuscular Volume 88.1 fL (80.0-100.0); Mean Platelet Volume 10.5 fL (9.4-12.4); Platelet Count 148 K/uL (130-400); RDW Coefficient of Variation 13.6 % (11.5-14.5); RDW Standard Deviation 43.8 fL (36.4-46.3); Red Blood Count 4.04 M/uL (4.20-5.40); White Blood Count 13.35 K/ul (4.8-10.8)
--- NOTE | 2024-10-18 07:00 | Obstetrical Progress Note ---
Date of Service October 18, 2024 Assessment & Plan (1) Encounter for care and examination after delivery: Plan Plan d/c, instructions given. f/u 6 weeks. Rhogam if indicated. Day #:: 1 Subjective Ambulation: ambulating normally Voiding: no voiding problems Passing Gas:: Yes Diet Tolerance:: regular diet Lochia:: Small Feeding Type:: breast feeding Physical Exam Constitutional WD/WN, vitals as above Respiratory normal respiratory effort, lungs clear to auscultation Cardiovascular RRR, no murmur, no edema Extremities: no calf tenderness and no edema Gastrointestinal (Abdomen) soft, nt, nd, ff/nt at u Psychiatric A+Ox3, euthymic affect Results & Data Vital Signs (Past 12 Hours) Vital Signs Temp Pulse Resp BP Pulse Ox O2 Del Method 10/18/24 00:00 36.8 C 89 18 117/65 96 Room Air 10/17/24 19:15 36.6 C 90 18 106/70 96 Room Air 10/17/24 19:15 Room Air
[2024-10-18 08:09] VITALS: BP 128/82; TEMP 97.9; O2SAT 97
[2024-10-18] MEDS ORDERED: bisacodyL 5 MG TABEC PO SCH (20:00)
[2024-10-19] MEDS ORDERED: bisacodyL 10 MG SUPP PR PRN (03:09)
== END 2024-10-18 12:57 | disposition home or self-care (01) | DRG 807 ==
LOC: 4S1 18:04 → 4E2 10-17 05:00